=== PATIENT | male | born 1990 ===

== ENCOUNTER 2020-09-16 08:33 | Outpatient (CLI) | payer OTHER ==
--- NOTE | 2020-09-16 08:59 | ULT ---
Thyroid ultrasound: 09/16/2020 COMPARISON: None. HISTORY: Posterior cervical lymphadenopathy. TECHNIQUE: Multiplanar grayscale sonographic imaging of the thyroid gland obtained. FINDINGS: The thyroid isthmus measures 2 mm in AP dimension. The right lobe measures 1.7 x 5.5 x 1.5 cm. The left lobe measures 1.5 x 5.2 x 1.6 cm. No discrete thyroid nodule is noted. IMPRESSION: Unremarkable thyroid ultrasound. Transcribed Date/Time: 09/16/2020 9:44 AM
--- NOTE | 2020-09-16 09:17 | ULT ---
Exam: Soft tissue neck ultrasound HISTORY: Intracranial pressure. Left neck swelling. COMPARISON: None. TECHNIQUE: Targeted sonographic imaging of the region of concern in the posterior left neck was perfo rmed. Imaging of the contralateral side was performed as reference. Static images are reviewed. FINDINGS: Static images demonstrate multiple soft tissue neck lymph nodes. Fatty hilum are preserved. There is no evidence of lymphadenopathy by size criteria, in terms of the left neck. There is an enlarged right posterior neck lymph node measuring 0.6 x 1.7 x 0.8 cm. Hilum is preserved. IMPRESSION: 1. Incidental enlarged right posterior neck lymph node. 2. No sonographic abnormality in the region of concern in the left neck. Further evaluation with post contrast soft tissue neck CT may be beneficial. Transcribed Date/Time: 09/16/2020 9:46 AM
== END 2020-09-16 08:34 | disposition home or self-care (01) ==
LOC: BICULT 08:33
DX: R59.0 Localized enlarged lymph nodes (principal)
CPT/HCPCS: 76536